=== PATIENT | male | born 1945 | race Caucasian/White ===

== ENCOUNTER 2018-02-08 16:02 | Emergency (ER) | payer MEDICARE, BC ==
[~2018-02-08] VITALS: Ht 162.6 cm; Wt 81.7 kg
[~2018-02-08 16:02] MED LIST: ALLO300 PO; Aspir 8181 MG PO; CLOP75 PO; ESOM20; Inderal80 MG; LOVA40 PO; Nexium40 MG PO; PANT40; PAROEX473 ML; POLY500; POLY500 PO; PRIM50; PROP10 PO; Prinivil10 MG PO; TRAM50 PO; TRIHYD253A PO; Viagra100 MG
== END 2018-02-08 20:18 | disposition home or self-care (01) ==
LOC: ER 16:02
DX: S82.831A Other fracture of upper and lower end of right fibula, initial encounter for closed fracture (principal); F17.200 Nicotine dependence, unspecified, uncomplicated; Z88.8 Allergy status to other drugs, medicaments and biological substances; Z79.899 Other long term (current) drug therapy; X58.XXXA Exposure to other specified factors, initial encounter
CPT/HCPCS: 73610; 99283

== ENCOUNTER → 2018-11-11 | Outpatient (CLI) | payer MEDICARE, BC | END | disposition home or self-care (01) | LOC: LAB EV 11:00 | DX: R19.7 Diarrhea, unspecified (principal) | CPT/HCPCS: 87015; 87045; 87046; 87205; 87493; 87899 ==

== ENCOUNTER → 2019-03-08 | Outpatient (CLI) | payer MEDICARE, BC | END | disposition home or self-care (01) | LOC: LAB EV 13:27 → LAB FUT 03-07 11:25 | DX: K52.9 Noninfective gastroenteritis and colitis, unspecified (principal) | CPT/HCPCS: 87015; 87045; 87046; 87205; 87899 ==

== ENCOUNTER → 2019-03-15 | Outpatient (CLI) | payer MEDICARE, BC ==
[2019-03-19 02:08] LABS: CHLAMYDIA TRACHOMATIS, NAA Negative (Negative); NEISSERIA GONORRHOEAE, NAA Negative (Negative)
== END ==
LOC: LAB 13:30 → LAB SHORT 13:30
PROVIDERS: Registered Nurse Community Health
DX: Z11.3 Encounter for screening for infections with a predominantly sexual mode of transmission (principal); Z20.2 Contact with and (suspected) exposure to infections with a predominantly sexual mode of transmission
CPT/HCPCS: 87491; 87591

== ENCOUNTER 2019-10-31 12:57 | Day surgery (SDC) | payer MEDICARE, BC ==
[~2019-10-31] VITALS: Ht 162.6 cm; Wt 80.6 kg
== END 2019-10-31 15:25 | disposition home or self-care (01) ==
LOC: ORSCSDS 12:57
PROVIDERS: Internal Medicine Gastroenterology
PROC: 0DB58ZX Excision of Esophagus, Via Natural or Artificial Opening Endoscopic, Diagnostic (ICD-10-PCS; principal; 2019-10-31 14:30)
PROC: 0DB68ZX Excision of Stomach, Via Natural or Artificial Opening Endoscopic, Diagnostic (ICD-10-PCS; principal; 2019-10-31 14:30)
DX: K22.70 Barrett's esophagus without dysplasia (principal); K44.9 Diaphragmatic hernia without obstruction or gangrene; K29.60 Other gastritis without bleeding; Z87.820 Personal history of traumatic brain injury; Z87.891 Personal history of nicotine dependence; Z79.01 Long term (current) use of anticoagulants; Z79.899 Other long term (current) drug therapy
CPT/HCPCS: 82947; 87081; 88305; J2704; J7120

== ENCOUNTER 2019-11-28 13:14 | Emergency (ER) | payer MEDICARE, BC ==
[~2019-11-28] VITALS: Ht 162.6 cm; Wt 81.7 kg
[2019-11-28 13:43] LABS: BASOPHILS ABSOLUTE AUTO 0.07 K/mm3 (0.00-0.23); BASOPHILS PERCENT AUTO 1 % (0-2); EOSINOPHILS ABSOLUTE AUTO 0.13 K/mm3 (0.00-0.68); EOSINOPHILS PERCENT AUTO 2 % (0-6); Hematocrit 44.3 % (37.0-53.0); IMMATURE GRAN ABSOLUTE AUTO 0.05 K/mm3 (0.00-0.10); IMMATURE GRAN PERCENT AUTO 1 % (0-1); LYMPHOCYTES ABSOLUTE AUTO 1.99 K/mm3 (0.84-5.20); LYMPHOCYTES PERCENT AUTO 23 % (21-46); MONOCYTES ABSOLUTE AUTO 1.34 K/mm3 (0.16-1.47); MONOCYTES PERCENT AUTO 16 % (4-13); Mean Corpuscular HGB 32.8 pg (26.0-34.0); Mean Corpuscular HGB Conc 33.9 g/dL (31.5-36.5); Mean Corpuscular Volume 97 fL (80-100); Mean Platelet Volume 9.4 fL (9.1-12.4); NEUTROPHILS ABSOLUTE AUTO 4.98 K/mm3 (1.96-9.15); NEUTROPHILS PERCENT AUTO 58 % (41-73); Platelet Count 315 K/mm3 (150-400); RDW Coefficient Variation 12.5 % (11.7-14.2); RDW Standard Deviation 44.9 fL (35.1-46.3); Red Blood Cell Count 4.57 M/mm3 (4.30-5.90); White Blood Cell Count 8.56 K/mm3 (4.00-11.30)
[2019-11-28 14:04] LABS: Alanine Aminotransfer (ALT/SGP 28 U/L (12-78); Albumin, Blood 3.7 g/dL (3.4-5.0); Albumin/Globulin Ratio 1.1 (0.8-1.8); Alk Phos 75 U/L (50-136); Anion Gap 6 mmol/L (6-16); Aspartate Aminotrans (AST/SGOT 19 U/L (12-37); Bilirubin, Total 0.4 mg/dL (0.1-1.0); Blood Urea Nitrogen 10 mg/dL (8-24); Bun/Creatinine Ratio 14.2 (12.0-20.0); CO2, Blood 30 mmol/L (21-32); Calcium, Blood 9.5 mg/dL (8.5-10.1); Chloride, Blood 94 mmol/L (98-108); Globulin, Blood 3.4 g/dL (2.2-4.0); Glomerular Filtration Rate >60 (60-); Glucose, Blood 69 mg/dL (70-99); Sodium, Blood 130 mmol/L (136-145); Total Protein, Blood 7.1 g/dL (6.4-8.2); Troponin I <0.015 ng/mL (0.000-0.040)
[2019-11-28] MEDS ORDERED: Nexium40 MG PO (15:01)
[2019-11-28] MEDS ORDERED: ASPI81CH PO (15:01)
[2019-11-28] MEDS ORDERED: TRIA50 PO (15:02)
[2019-11-28] MEDS ORDERED: Primidone50 MG PO (15:02)
== END 2019-11-28 16:30 | disposition home or self-care (01) ==
LOC: ER 13:14
PROVIDERS: Emergency Medicine
DX: R07.9 Chest pain, unspecified (principal); I10 Essential (primary) hypertension; Z86.73 Personal history of transient ischemic attack (TIA), and cerebral infarction without residual deficits; Z87.891 Personal history of nicotine dependence
CPT/HCPCS: 71045; 80053; 83880; 84484; 85025; 93005; 93010; 99285-25

== ENCOUNTER → 2019-12-22 | Outpatient (CLI) | payer MEDICARE, BC ==
[~2019-12-22] MED LIST changes: +ASPI81CH PO; +Primidone50 MG PO; +TRIA50 PO
[2019-12-23 14:57] LABS: Stool Occult Bld Immuno 1 Negative (NEGATIVE); Stool Occult Bld Immuno 2 Negative (NEGATIVE)
== END | disposition home or self-care (01) ==
LOC: LAB 10:00 → LAB SHORT 10:00 → LAB FUT 12-19 19:00
PROVIDERS: Internal Medicine Gastroenterology
DX: Z79.01 Long term (current) use of anticoagulants (principal); Z51.81 Encounter for therapeutic drug level monitoring; K57.30 Diverticulosis of large intestine without perforation or abscess without bleeding; K92.1 Melena
CPT/HCPCS: 82274

== ENCOUNTER 2020-04-18 16:06 | Inpatient (IN) | payer MEDICARE, BC ==
[~2020-04-18] VITALS: Ht 162.6 cm; Wt 83.2 kg
[~2020-04-18 16:06] MED LIST changes: +ALLO100 PO; -ALLO300 PO; +DYAZIDE 37.5-21 EACH PO; -TRIA50 PO
[2020-04-18] MEDS ORDERED: PANT40 PO (16:23)
[2020-04-18] MEDS ORDERED: POTCHL20ER PO (16:24)
[2020-04-18] MEDS ORDERED: Ipratropium Bro15 ML (16:24)
[2020-04-18 17:20] LABS: BASOPHILS ABSOLUTE AUTO 0.04 K/mm3 (0.00-0.23); BASOPHILS PERCENT AUTO 0 % (0-2); EOSINOPHILS ABSOLUTE AUTO 0.11 K/mm3 (0.00-0.68); EOSINOPHILS PERCENT AUTO 1 % (0-6); IMMATURE GRAN ABSOLUTE AUTO 0.08 K/mm3 (0.00-0.10); IMMATURE GRAN PERCENT AUTO 1 % (0-1); LYMPHOCYTES ABSOLUTE AUTO 1.89 K/mm3 (0.84-5.20); LYMPHOCYTES PERCENT AUTO 14 % (21-46); MONOCYTES ABSOLUTE AUTO 2.34 K/mm3 (0.16-1.47); MONOCYTES PERCENT AUTO 18 % (4-13); Mean Corpuscular HGB 32.5 pg (26.0-34.0); Mean Corpuscular HGB Conc 35.1 g/dL (31.5-36.5); Mean Corpuscular Volume 93 fL (80-100); Mean Platelet Volume 9.6 fL (9.1-12.4); NEUTROPHILS ABSOLUTE AUTO 8.91 K/mm3 (1.96-9.15); NEUTROPHILS PERCENT AUTO 67 % (41-73); Platelet Count 234 K/mm3 (150-400); RDW Coefficient Variation 11.7 % (11.7-14.2); RDW Standard Deviation 39.6 fL (35.1-46.3); White Blood Cell Count 13.37 K/mm3 (4.00-11.30)
[2020-04-18 17:39] LABS: Source, Urine Voided
[2020-04-18 17:46] LABS: Alanine Aminotransfer (ALT/SGP 25 U/L (12-78); Albumin, Blood 3.2 g/dL (3.4-5.0); Albumin/Globulin Ratio 1.1 (0.8-1.8); Alk Phos 65 U/L (50-136); Anion Gap 9 mmol/L (6-16); Aspartate Aminotrans (AST/SGOT 71 U/L (12-37); Bilirubin, Total 0.6 mg/dL (0.1-1.0); Blood Urea Nitrogen 9 mg/dL (8-24); Bun/Creatinine Ratio 13.7 (12.0-20.0); CO2, Blood 28 mmol/L (21-32); Calcium, Blood 8.7 mg/dL (8.5-10.1); Chloride, Blood 86 mmol/L (98-108); Creatinine, Blood 0.66 mg/dL (0.60-1.20); Ethanol (Alcohol), Blood, Med <3 mg/dL; Globulin, Blood 2.9 g/dL (2.2-4.0); Glomerular Filtration Rate >60 (60-); Glucose, Blood 90 mg/dL (70-99); Magnesium, Blood 1.8 mg/dL (1.6-2.4); Potassium, Blood 3.1 mmol/L (3.5-5.5); Sodium, Blood 123 mmol/L (136-145); Total Protein, Blood 6.1 g/dL (6.4-8.2); Troponin I 0.025 ng/mL (0.000-0.040)
[2020-04-18 17:50] LABS: Bilirubin, Urine Neg (Neg); Blood, Urine 4+ (Neg); Glucose Qualitative, Urine 1+ (Neg); Ketones, Urine 1+ (Neg); Leukocyte Esterase, Urine Neg (Neg); Nitrite, Urine Neg (Neg); Protein, Urine 3+ (Neg); Urobilinogen, Urine NORM (Normal)
[2020-04-18 17:52] LABS: Creatine Kinase MB 17.1 ng/mL (0.0-3.6)
[2020-04-18 17:55] LABS: CPK Creatine Kinase 2163 U/L (39-308); Creatine Kinase MB Index 0.8 (0.0-4.0)
[2020-04-18 17:57] LABS: Appearance, Urine Clear (Clear); Color, Urine Yellow (P-Yellow)
[2020-04-18 18:00] LABS: Bacteria Few /hpf; Squamous Epithelial Cells Few /hpf (Few); White Blood Cells, Urine 0-2 /hpf (0-5)
[2020-04-18 18:05] LABS: U Amphetamine Screen Not Detected; U Barbituate Screen Not Detected; U Benzodiazapine Screen Not Detected; U Buprenorphine Screen Not Detected; U Cannabinoids Screen Not Detected; U Cocaine Screen Not Detected; U Methadone Screen Not Detected; U Methamphetamine Screen Not Detected; U Opiates Screen Not Detected; U Oxycodone Screen Not Detected; U Phencyclidine Screen Not Detected; U Propoxyphene Screen Not Detected
[2020-04-18] MEDS ORDERED: ESCI10 PO (19:13)
[2020-04-18] MEDS ORDERED: Fiber Therapy0.52 GM PO (19:57)
[2020-04-18] MEDS ORDERED: Vitamin D2000 UNIT PO (19:57)
[2020-04-19 05:31] LABS: BASOPHILS ABSOLUTE AUTO 0.04 K/mm3 (0.00-0.23); BASOPHILS PERCENT AUTO 0 % (0-2); EOSINOPHILS ABSOLUTE AUTO 0.13 K/mm3 (0.00-0.68); EOSINOPHILS PERCENT AUTO 1 % (0-6); Hematocrit 34.1 % (37.0-53.0); Hemoglobin 11.9 g/dL (13.5-17.5); IMMATURE GRAN ABSOLUTE AUTO 0.05 K/mm3 (0.00-0.10); IMMATURE GRAN PERCENT AUTO 0 % (0-1); LYMPHOCYTES ABSOLUTE AUTO 1.88 K/mm3 (0.84-5.20); LYMPHOCYTES PERCENT AUTO 16 % (21-46); MONOCYTES ABSOLUTE AUTO 1.82 K/mm3 (0.16-1.47); MONOCYTES PERCENT AUTO 15 % (4-13); Mean Corpuscular HGB 32.5 pg (26.0-34.0); Mean Corpuscular HGB Conc 34.9 g/dL (31.5-36.5); Mean Corpuscular Volume 93 fL (80-100); Mean Platelet Volume 9.9 fL (9.1-12.4); NEUTROPHILS ABSOLUTE AUTO 8.15 K/mm3 (1.96-9.15); NEUTROPHILS PERCENT AUTO 68 % (41-73); Platelet Count 229 K/mm3 (150-400); RDW Coefficient Variation 11.8 % (11.7-14.2); RDW Standard Deviation 40.5 fL (35.1-46.3); Red Blood Cell Count 3.66 M/mm3 (4.30-5.90); White Blood Cell Count 12.07 K/mm3 (4.00-11.30)
--- NOTE | 2020-04-19 05:51 | NUR ---
SHIFT SUMMARY PT NEW ED ADMIT THIS EVENING. PT WAS HAVING MULTIPLE FALLS AT HOME. DOWN FOR APPROX 1 HR EACH TIME. A COUPLE SCATTERED BRUISES THROUGHOUT. SKIN TEAR TO LFA. NEW MEPILEX APPLIED. PT WAS ABLE TO STAND AND TAKE SMALL STEPS TO TRANSFER FROM GURNEY TO BED AND FROM BED TO BSC. PT FEELING VERY WEAK AND TIRED BUT TOLERATED TRANSFERS WELL. K AND MAG RIDER INFUSED THIS EVENING. LR RUNNING AT 125 ML/HR. NAM PLACED IN ED FOR RETENTION. URINE APPEARS TO HAVE SOME BLOOD IN IT. LESSENING THROUGHOUT THE NIGHT. PT IS ON PLAVIX AT HOME. NO COMPLAINTS OF PAIN. VITAL SIGNS STABLE. OTHERWISE PT HAD UNEVENTFUL NIGHT. WILL CONTINUE TO MONITOR AND REPORT TO DAY RN.
[2020-04-19 05:58] LABS: Alanine Aminotransfer (ALT/SGP 22 U/L (12-78); Albumin, Blood 2.8 g/dL (3.4-5.0); Alk Phos 55 U/L (50-136); Anion Gap 9 mmol/L (6-16); Aspartate Aminotrans (AST/SGOT 63 U/L (12-37); Bilirubin, Total 0.6 mg/dL (0.1-1.0); Blood Urea Nitrogen 7 mg/dL (8-24); Bun/Creatinine Ratio 12.7 (12.0-20.0); CO2, Blood 26 mmol/L (21-32); Calcium, Blood 7.9 mg/dL (8.5-10.1); Chloride, Blood 87 mmol/L (98-108); Creatinine, Blood 0.55 mg/dL (0.60-1.20); Globulin, Blood 2.8 g/dL (2.2-4.0); Glomerular Filtration Rate >60 (60-); Glucose, Blood 98 mg/dL (70-99); Potassium, Blood 3.2 mmol/L (3.5-5.5); Sodium, Blood 122 mmol/L (136-145); Total Protein, Blood 5.6 g/dL (6.4-8.2); Troponin I <0.015 ng/mL (0.000-0.040)
[2020-04-19 06:06] LABS: CPK Creatine Kinase 1346 U/L (39-308)
[2020-04-19 15:02] LABS: Anion Gap 8 mmol/L (6-16); Blood Urea Nitrogen 8 mg/dL (8-24); Bun/Creatinine Ratio 15.3 (12.0-20.0); CO2, Blood 25 mmol/L (21-32); Calcium, Blood 8.1 mg/dL (8.5-10.1); Chloride, Blood 88 mmol/L (98-108); Creatinine, Blood 0.52 mg/dL (0.60-1.20); Glomerular Filtration Rate >60 (60-); Glucose, Blood 119 mg/dL (70-99); Potassium, Blood 3.6 mmol/L (3.5-5.5); Sodium, Blood 121 mmol/L (136-145)
--- NOTE | 2020-04-19 17:12 | NUR ---
Shift Summary A/Ox3, calls for needs appropriately. 1P c FWW to bedside commode. Pleasant and cooperative with care, very conversational. Denies pain, nausea, vomiting. Had an uneventful day. Clark removed. Hyponatremia continues, strict I/O with free fluid restrictions in place of 1000 mL/day. Tolerating PO well, good appetite. No other acute concerns. Dr. Pruett aware of hyponatremia. Will continue to monitor.
[2020-04-19 21:07] LABS: CHLAMYDIA TRACHOMATIS, NAA Negative (Negative); NEISSERIA GONORRHOEAE, NAA Negative (Negative)
[2020-04-20 05:22] LABS: BASOPHILS ABSOLUTE AUTO 0.03 K/mm3 (0.00-0.23); BASOPHILS PERCENT AUTO 0 % (0-2); EOSINOPHILS ABSOLUTE AUTO 0.12 K/mm3 (0.00-0.68); EOSINOPHILS PERCENT AUTO 1 % (0-6); Hematocrit 34.8 % (37.0-53.0); Hemoglobin 12.1 g/dL (13.5-17.5); IMMATURE GRAN ABSOLUTE AUTO 0.05 K/mm3 (0.00-0.10); IMMATURE GRAN PERCENT AUTO 1 % (0-1); LYMPHOCYTES ABSOLUTE AUTO 1.78 K/mm3 (0.84-5.20); LYMPHOCYTES PERCENT AUTO 17 % (21-46); MONOCYTES ABSOLUTE AUTO 1.82 K/mm3 (0.16-1.47); MONOCYTES PERCENT AUTO 17 % (4-13); Mean Corpuscular HGB 32.7 pg (26.0-34.0); Mean Corpuscular HGB Conc 34.8 g/dL (31.5-36.5); Mean Corpuscular Volume 94 fL (80-100); Mean Platelet Volume 9.8 fL (9.1-12.4); NEUTROPHILS ABSOLUTE AUTO 6.79 K/mm3 (1.96-9.15); NEUTROPHILS PERCENT AUTO 64 % (41-73); Platelet Count 217 K/mm3 (150-400); RDW Coefficient Variation 11.9 % (11.7-14.2); White Blood Cell Count 10.59 K/mm3 (4.00-11.30)
[2020-04-20 05:48] LABS: Albumin, Blood 2.9 g/dL (3.4-5.0); Anion Gap 8 mmol/L (6-16); Blood Urea Nitrogen 7 mg/dL (8-24); Bun/Creatinine Ratio 14.2 (12.0-20.0); CO2, Blood 25 mmol/L (21-32); Calcium, Blood 7.9 mg/dL (8.5-10.1); Chloride, Blood 91 mmol/L (98-108); Creatinine, Blood 0.49 mg/dL (0.60-1.20); Glomerular Filtration Rate >60 (60-); Glucose, Blood 109 mg/dL (70-99); Magnesium, Blood 1.7 mg/dL (1.6-2.4); Phosphorus, Blood 2.2 mg/dL (2.5-4.9); Potassium, Blood 3.4 mmol/L (3.5-5.5); Sodium, Blood 124 mmol/L (136-145)
--- NOTE | 2020-04-20 07:17 | NUR ---
SHIFT SUMMARY: VSS. AFEB. AAOX3. MAKES NEEDS KNOWN. NA+ 124 THIS AM. PT COMPLIANT W/FLUID RESTRICTION. CONTINENT W/VOIDS. IV FLUIDS INFUSING ORDERED. PIVOT T/F TO BSC W/ 1 ASSIST AND WALKER. A LITTLE UNSTEADY. SLEPT INTERMITTENTLY. NASAL CONGESTION AUDIBLE THIS AM, PT STATES THIS IS BASELINE FOR HIM. NO ACUTE CHANGES TONIGHT. WILL CONT TO MONITOR.
[2020-04-20 10:09] LABS: Creatine Kinase MB 7.4 ng/mL (0.0-3.6); Creatine Kinase MB Index 0.6 (0.0-4.0)
--- NOTE | 2020-04-20 17:47 | NUR ---
SHIFT SUMMARY- PT IS A/O, PLESANT AND COOPERATIVE. HE IS RECIEVING IV K. HE HAD A SHOWER TODAY. WORKED WITH PT/OT. HE TOLERATED IT WELL. HE IS EATING AND DRINKING WELL.
[2020-04-21 05:29] LABS: Anion Gap 10 mmol/L (6-16); Blood Urea Nitrogen 8 mg/dL (8-24); Bun/Creatinine Ratio 16.2 (12.0-20.0); CO2, Blood 25 mmol/L (21-32); Calcium, Blood 8.1 mg/dL (8.5-10.1); Chloride, Blood 92 mmol/L (98-108); Glomerular Filtration Rate >60 (60-); Glucose, Blood 107 mg/dL (70-99); Phosphorus, Blood 2.5 mg/dL (2.5-4.9); Potassium, Blood 3.8 mmol/L (3.5-5.5); Sodium, Blood 127 mmol/L (136-145)
--- NOTE | 2020-04-21 07:08 | NUR ---
SUMMARY PT HAD NO ISSUES NOTED. PT HAS SLEPT T/O SHIFT. PT IS USING FWW TO AMBULATE WELL. PT CURRENTLY SLEEPING IN CHAIR AND BREATHING EASY. CALL LIGHT IN REACH AND CHAIR ALARM ON.
--- NOTE | 2020-04-21 15:59 | NUR ---
SHIFT SUMMARY PT IS A/O X 4 WITH NO C/O PAIN. HE IS [place] AND THAT CAN SOMETIMES BE A BARRIER TO COMMUNICATION. HE IS A STAND BY ASSIST WITH FWW AND GAIT BELT. HE WORKED WITH THERAPY TODAY AND IS DOING WELL. THE PLAN IS FOR HIM TO DC TO SNF. IV FLUIDS INFUSING ORDERED WITH NO ISSUE. PT HAS A GOOD APPETITE AND HAS BEEN AMBULATING TO THE TOILET FOR VOIDING. HE IS ABLE TO MAKE HIS NEEDS KNOWN AND CALLS FOR HELP WHEN NEEDED.
--- NOTE | 2020-04-22 03:05 | NUR ---
ASSUMED CARE OF PATIENT @ [id number] FROM JOELLE MILLER.
--- NOTE | 2020-04-22 03:23 | NUR ---
REPORT GIVEN TO Lolis VANESSA RN
[2020-04-22 05:46] LABS: Albumin, Blood 2.9 g/dL (3.4-5.0); Anion Gap 8 mmol/L (6-16); Blood Urea Nitrogen 10 mg/dL (8-24); Bun/Creatinine Ratio 17.8 (12.0-20.0); CO2, Blood 25 mmol/L (21-32); CPK Creatine Kinase 583 U/L (39-308); Calcium, Blood 8.4 mg/dL (8.5-10.1); Chloride, Blood 97 mmol/L (98-108); Creatinine, Blood 0.56 mg/dL (0.60-1.20); Glomerular Filtration Rate >60 (60-); Glucose, Blood 104 mg/dL (70-99); Sodium, Blood 130 mmol/L (136-145)
[2020-04-22 06:03] LABS: Creatine Kinase MB 4.3 ng/mL (0.0-3.6); Creatine Kinase MB Index 0.7 (0.0-4.0)
--- NOTE | 2020-04-22 06:35 | NUR ---
Pt rested peacefully during the night and was assisted to the bathroom three times to void. pt reported no pain or new symptoms during the shift. pt is sleeping in bed with the bed alarm on and the vanessa light within reach.
--- NOTE | 2020-04-22 17:40 | NUR ---
PT AOX3 AND COOPERATIVE OF CARE. PT HAS BEEN DOING WELL TODAY. PT IS A ONE PERSON WITH WALKER TO RESTROOM. PT CAN SLEEP VERY HEAVY AND BE HARD TO WAKE UP, BUT ONCE AWAKE IF VERY ALERT. PT HAS BEEN UP MANY TIMES TODAY TO AMBULATE TO RESTROOM AND PT HAS DONE WELL. PT UP FOR ALL MEALS AND HAS BEEN UP IN HIS CHAIR A LOT TODAY. CALL LIGHT WITHIN REACH WILL CONTINUE TO MONITOR.
--- NOTE | 2020-04-23 04:29 | NUR ---
SUMMARY PT HAD NO ISSUES NOTED. PT WANTED TO WALK SOME BEFORE [id number] A MOVIE. PT WAS WALKED W/ FWW UP AND DOWN BLAKE. PT WAS UP LATE WATCHING TV IN CHAIR. PT VOIDED MULTIPLE TIMES W/ OUT ISSUE. PT SCROTAL SWELLING REMAINS. PT HAS BEEN BEEN SLEEPING WELL SINCE GOING TO BED. PT CURRENTLY SLEEPING AND IN NO DISTRESS. CALL LIGHT IN REACH BED ALARM ON.
[2020-04-23 05:37] LABS: BASOPHILS ABSOLUTE AUTO 0.07 K/mm3 (0.00-0.23); BASOPHILS PERCENT AUTO 1 % (0-2); EOSINOPHILS ABSOLUTE AUTO 0.26 K/mm3 (0.00-0.68); EOSINOPHILS PERCENT AUTO 3 % (0-6); IMMATURE GRAN ABSOLUTE AUTO 0.04 K/mm3 (0.00-0.10); IMMATURE GRAN PERCENT AUTO 0 % (0-1); LYMPHOCYTES ABSOLUTE AUTO 1.29 K/mm3 (0.84-5.20); LYMPHOCYTES PERCENT AUTO 14 % (21-46); MONOCYTES ABSOLUTE AUTO 1.95 K/mm3 (0.16-1.47); MONOCYTES PERCENT AUTO 20 % (4-13); Mean Corpuscular HGB 32.5 pg (26.0-34.0); Mean Corpuscular HGB Conc 34.3 g/dL (31.5-36.5); Mean Corpuscular Volume 95 fL (80-100); Mean Platelet Volume 9.8 fL (9.1-12.4); NEUTROPHILS ABSOLUTE AUTO 5.94 K/mm3 (1.96-9.15); NEUTROPHILS PERCENT AUTO 62 % (41-73); Platelet Count 260 K/mm3 (150-400); RDW Coefficient Variation 12.1 % (11.7-14.2); RDW Standard Deviation 42.8 fL (35.1-46.3); Red Blood Cell Count 3.69 M/mm3 (4.30-5.90); White Blood Cell Count 9.55 K/mm3 (4.00-11.30)
[2020-04-23 05:40] LABS: Albumin, Blood 2.8 g/dL (3.4-5.0); Anion Gap 8 mmol/L (6-16); Blood Urea Nitrogen 10 mg/dL (8-24); Bun/Creatinine Ratio 19.5 (12.0-20.0); CO2, Blood 27 mmol/L (21-32); Calcium, Blood 8.5 mg/dL (8.5-10.1); Chloride, Blood 97 mmol/L (98-108); Creatinine, Blood 0.51 mg/dL (0.60-1.20); Glomerular Filtration Rate >60 (60-); Glucose, Blood 102 mg/dL (70-99); Magnesium, Blood 1.7 mg/dL (1.6-2.4); Phosphorus, Blood 3.4 mg/dL (2.5-4.9); Potassium, Blood 3.8 mmol/L (3.5-5.5); Sodium, Blood 132 mmol/L (136-145)
--- NOTE | 2020-04-23 15:51 | NUR ---
SHIFT SUMMARY PT IS A/O X 4 AND IS VERY [place] WITH CAN BE A BARRIER TO COMMUNICATION. HE HAS NO COMPLAINTS. PT WORKED WITH THERAPIES TODAY AND IS IMPROVING. DR KHALIL ORDERED AN MRI WHICH WAS JUST COMPLETED AND THE PT IS NOW BACK IN HIS ROOM. HE AMBULATES TO THE TOILET WITH THE FWW AND STAND BY ASSIST. PT IS ABLE TO MAKE HIS NEEDS KNOWN AND CALLS FOR HELP WHEN NEEDED.
--- NOTE | 2020-04-24 07:22 | NUR ---
74 year old MAle admitted 04/18 with fall & rhabdo continued most of shift on IVF with kt. He has basline tremors needs assist to get up oob multiple times to ambulate to bathroom. PT has 2 pluse bilat edema some wheezing but room air. On fluid restriction aware of limits. Vladislav perez with PT OT hoping to dc to SNF soon.
--- NOTE | 2020-04-24 11:19 | NUR ---
Pt sitting in recliner chair upon arrival. Pt denies pain and dyspnea at this time. Pt reports improved strength. Listened as Pt discussed ambulating with Pt taking a full lap around medical floor. Pt reports receiving assistance with caregivers 3 days a week. Educated Pt on the importance of having [facility] re-evaluate needs and assistance requirements in order to increase caregiver support. Provided simple and gentle education regarding the importance of routine conversations with PCP and developing multiple plans. Pt expresses appreciation of visit and reports no other concerns. Palliative Care will remain available.
--- NOTE | 2020-04-24 15:28 | NUR ---
SHIFT SUMMARY PT REMAINS A/O X 4 AND [place]. HE HAS NO C/O PAIN. HE CONTINUES TO IMPROVE AND WORK WITH THERPAY. HE AMBULATES WITH A FWW TO THE TOILET. DR KHALIL MET WITH THE PT THIS MORNING AND PLANS TO DC THE PT HOME TOMORROW WITH HOME HEALTH. PT IS ABLE TO MAKE HIS NEEDS KNOWN AND CALLS FOR HELP WHEN NEEDED.
--- NOTE | 2020-04-25 06:15 | NUR ---
PT with fall & rhabdo continues to request assistance appropriately to go to bathroom or ambulate on unit. Has some difficulty rising from chair to standing but has slow & steady gait unce up & moving. PT declined SNF says he want to return home with caregivers from [facility]. PT is [place] & [facility] assists with providing services. On room air , voids , toleratieng diet & activity. PT says his ex Step DTR is supportive & she will be picking him up for discharge today. Denies acute pain . Compliant with 1000 ml fluid restriction . Continues with frail thin skin with third spacing evident from fluids given for rhabdo.
[2020-04-25] MEDS ORDERED: ACET325 PO (15:21)
--- NOTE | 2020-04-25 16:06 | NUR ---
PATIENT DISCHARGE: PATIENT DISCHARGED TO HOME / XFR TO HOME HEALTH THIS SHIFT. MEDICATION RECONCILIATION COMPLETED; [facility] [place] DISCHARGE EDUCATION COMPLETED WITH PATIENT. PATIENT TRANSPORTED TO EXIT BY [facility] WITH WHEELCHAIR AT 1602. PATIENT DEPARTED [facility] VIA PRIVATE AUTO.
== END 2020-04-25 16:10 | disposition home health service (06) | DRG 565 ==
LOC: ER 16:06 → MEDS 20:25
PROVIDERS: Emergency Medicine; Internal Medicine Gastroenterology; Nurse Practitioner Acute Care; ADMIT Internal Medicine
DX: T79.6XXA Traumatic ischemia of muscle, initial encounter (principal); E87.1 Hypo-osmolality and hyponatremia; I65.22 Occlusion and stenosis of left carotid artery; W19.XXXA Unspecified fall, initial encounter; E83.39 Other disorders of phosphorus metabolism; E78.5 Hyperlipidemia, unspecified; I10 Essential (primary) hypertension; R53.81 Other malaise; K21.9 Gastro-esophageal reflux disease without esophagitis; F32.9 Major depressive disorder, single episode, unspecified; M10.9 Gout, unspecified; E87.6 Hypokalemia
CPT/HCPCS: 36415; 51702; 51798; 70450; 70544; 70551; 71045; 80048; 80053; 80069; 81001; 82550; 82553; 83735; 84443; 84484; 85025; 87491; 87591; 93005; 93010; 93880; 96361-59; 96365-59; 97110; 97112; 97116; 97162; 97166; 97530; 97535; 99285-25; A9270; A9270-GY; G0480; J1650; J1940; J3475; J3480; J7030; J7120

== ENCOUNTER → 2022-02-16 | Outpatient (CLI) | payer MEDICARE, BC ==
[~2022-02-16] MED LIST changes: +ACET325 PO; +ESCI10 PO; +Fiber Therapy0.52 GM PO; +Ipratropium Bro15 ML; +PANT40 PO; +POTCHL20ER PO; +Vitamin D2000 UNIT PO
[2022-02-17 20:24] LABS: Adenovirus F 40/41 Not Detected (NOT DETECT); Astrovirus Not Detected (NOT DETECT); Campylobacter Sp Not Detected (NOT DETECT); Cryptosporidium Not Detected (NOT DETECT); Cyclospora Cayetanensis Not Detected (NOT DETECT); E. Coli O157 Not Detected (NOT DETECT); Entamoeba Histolytica Not Detected (NOT DETECT); Enteroaggregative E. coli-EAEC Not Detected (NOT DETECT); Enteropathogenic E. coli-EPEC Not Detected (NOT DETECT); Enterotoxigenic E. coli-ETEC Not Detected (NOT DETECT); Giardia Lamblia Not Detected (NOT DETECT); Norovirus GI/GII Not Detected (NOT DETECT); Plesiomonas Shigelloides Not Detected (NOT DETECT); Rotavirus A Not Detected (NOT DETECT); Salmonella Sp Not Detected (NOT DETECT); Sapovirus Not Detected (NOT DETECT); Shiga Toxin-prod E. coli-STEC Not Detected (NOT DETECT); Shigella/Enteroin E. coli-EIEC Not Detected (NOT DETECT); Vibrio Cholerae Not Detected (NOT DETECT); Vibrio Sp Not Detected (NOT DETECT); Yersinia Enterocolitica Not Detected (NOT DETECT)
[2022-02-19 11:11] LABS: FATS, NEUTRAL Normal (.); FATS, TOTAL Normal (.)
== END | disposition home or self-care (01) ==
LOC: LAB 14:00 → LAB SHORT 14:00
PROVIDERS: Internal Medicine Gastroenterology
DX: R19.7 Diarrhea, unspecified (principal)
CPT/HCPCS: 0097U

== ENCOUNTER → 2022-02-27 | Outpatient (CLI) | payer BC ==
[2022-02-27 19:48] LABS: Campylobacter Sp Not Detected (NOT DETECT)
[2022-02-27 19:49] LABS: Adenovirus F 40/41 Not Detected (NOT DETECT); Astrovirus Not Detected (NOT DETECT); Cryptosporidium Not Detected (NOT DETECT); Cyclospora Cayetanensis Not Detected (NOT DETECT); E. Coli O157 Not Detected (NOT DETECT); Entamoeba Histolytica Not Detected (NOT DETECT); Enteroaggregative E. coli-EAEC Not Detected (NOT DETECT); Enteropathogenic E. coli-EPEC Not Detected (NOT DETECT); Enterotoxigenic E. coli-ETEC Not Detected (NOT DETECT); Giardia Lamblia Not Detected (NOT DETECT); Norovirus GI/GII Not Detected (NOT DETECT); Plesiomonas Shigelloides Not Detected (NOT DETECT); Rotavirus A Not Detected (NOT DETECT); Salmonella Sp Not Detected (NOT DETECT); Sapovirus Not Detected (NOT DETECT); Shiga Toxin-prod E. coli-STEC Not Detected (NOT DETECT); Shigella/Enteroin E. coli-EIEC Not Detected (NOT DETECT); Vibrio Cholerae Not Detected (NOT DETECT); Vibrio Sp Not Detected (NOT DETECT); Yersinia Enterocolitica Not Detected (NOT DETECT)
== END | disposition home or self-care (01) ==
LOC: LAB 14:12 → LAB SHORT 14:12
PROVIDERS: Internal Medicine Gastroenterology
DX: R19.7 Diarrhea, unspecified (principal)
CPT/HCPCS: 87507

== ENCOUNTER → 2023-10-20 | Outpatient (CLI) | payer MEDICARE, BC ==
[~2023-10-20] MED LIST changes: +Cyproheptadine H4 MG PO; +HYDCHL12.5 PO
[2023-10-21 11:47] LABS: Stool Occult Bld Immuno 1 Negative (NEGATIVE)
== END ==
LOC: EDSTATUS 07:21 → LAB 14:26 → LAB SHORT 14:26
PROVIDERS: Internal Medicine Gastroenterology
DX: R19.8 Other specified symptoms and signs involving the digestive system and abdomen (principal); Z86.010 Personal history of colon polyps
CPT/HCPCS: 82274

== ENCOUNTER → 2024-12-08 | Outpatient (CLI) | payer MEDICARE, BC ==
[2024-12-09 11:43] LABS: Stool Occult Bld Immuno 1 Negative (NEGATIVE)
== END | disposition home or self-care (01) ==
LOC: LAB 11:17 → LAB SHORT 11:17
DX: K92.2 Gastrointestinal hemorrhage, unspecified (principal)
CPT/HCPCS: 82274

== ENCOUNTER 2025-05-30 11:32 | Emergency (ER) | payer MEDICARE, BC ==
[~2025-05-30] VITALS: Ht 165.1 cm; Wt 71.7 kg
[2025-05-30 13:02] LABS: BASOPHILS ABSOLUTE AUTO 0.05 K/mm3 (0.00-0.23); BASOPHILS PERCENT AUTO 1 % (0-2); EOSINOPHILS ABSOLUTE AUTO 0.06 K/mm3 (0.00-0.68); EOSINOPHILS PERCENT AUTO 1 % (0-6); Hematocrit 41.4 % (37.0-53.0); Hemoglobin 14.1 g/dL (13.5-17.5); IMMATURE GRAN ABSOLUTE AUTO 0.03 K/mm3 (0.00-0.10); IMMATURE GRAN PERCENT AUTO 0 % (0-1); LYMPHOCYTES ABSOLUTE AUTO 1.71 K/mm3 (0.84-5.20); LYMPHOCYTES PERCENT AUTO 22 % (21-46); MONOCYTES ABSOLUTE AUTO 1.06 K/mm3 (0.16-1.47); MONOCYTES PERCENT AUTO 13 % (4-13); Mean Corpuscular HGB Conc 34.1 g/dL (31.5-36.5); Mean Corpuscular Volume 96 fL (80-100); NEUTROPHILS ABSOLUTE AUTO 5.00 K/mm3 (1.96-9.15); NEUTROPHILS PERCENT AUTO 63 % (41-73); NRBC ABSOLUTE 0.00 K/mm3 (0.00-0.02); NRBC Auto 0.0 /100 WBC (0.0-0.2); Platelet Count 269 K/mm3 (150-400); RDW Coefficient Variation 12.5 % (11.7-14.2); RDW Standard Deviation 44.6 fL (35.1-46.3)
[2025-05-30 13:21] LABS: Alanine Aminotransfer (ALT/SGP 30.0 U/L (12-78); Albumin, Blood 3.8 g/dL (3.4-5.0); Albumin/Globulin Ratio 1.2 (0.8-1.8); Anion Gap 4.0 mmol/L (3-11); Aspartate Aminotrans (AST/SGOT 24.0 U/L (12-37); Bilirubin, Total 0.5 mg/dL (0.1-1.0); Blood Urea Nitrogen 17.0 mg/dL (8-24); CO2, Blood 35.0 mmol/L (21-32); Calcium, Blood 9.4 mg/dL (8.5-10.1); Chloride, Blood 99.0 mmol/L (98-108); Creatinine, Blood 0.99 mg/dL (0.60-1.20); Globulin, Blood 3.3 g/dL (2.2-4.0); Glucose, Blood 125.0 mg/dL (70-99); Potassium, Blood 3.9 mmol/L (3.5-5.5); Sodium, Blood 134.0 mmol/L (136-145); Total Protein, Blood 7.1 g/dL (6.4-8.2)
[2025-05-30] MEDS ORDERED: PLAVIX75 MG PO (14:17)
[2025-05-30] MEDS ORDERED: ECONAZOLE NITRA30 GM (14:17)
[2025-05-30] MEDS ORDERED: IPRATROPIUM BRO15 ML (14:17)
[2025-05-30] MEDS ORDERED: ATOR40TA PO (14:18)
[2025-05-30 15:05] LABS: Source, Urine Clean Catch
[2025-05-30 15:13] LABS: Bilirubin, Urine Neg (Neg); Color, Urine Yellow (P-Yellow); Glucose Qualitative, Urine Neg (Neg); Ketones, Urine Neg (Neg); Leukocyte Esterase, Urine Neg (Neg); Protein, Urine 1+ (Neg); Specific Gravity, Urine 1.010 (1.003-1.022); Urobilinogen, Urine NORM (Normal)
[2025-05-30 15:20] LABS: White Blood Cells, Urine 0-2 /hpf (0-5)
[2025-05-30 16:13] VITALS: BP 141/74
== END 2025-05-30 16:06 | disposition home or self-care (01) ==
LOC: ER 11:32
PROVIDERS: Physician Assistant
DX: K52.9 Noninfective gastroenteritis and colitis, unspecified (principal); R63.4 Abnormal weight loss; K40.90 Unilateral inguinal hernia, without obstruction or gangrene, not specified as recurrent; I10 Essential (primary) hypertension; Z88.8 Allergy status to other drugs, medicaments and biological substances; Z79.899 Other long term (current) drug therapy; Z87.891 Personal history of nicotine dependence
CPT/HCPCS: 71046; 74177; 80053; 81001; 85025; 93005; 93010; 99284-25; Q9967

== ENCOUNTER 2025-06-19 17:22 | Inpatient (IN) | payer MEDICARE, BC ==
[~2025-06-19] VITALS: Ht 165.1 cm; Wt 70.7 kg
[~2025-06-19 17:22] MED LIST changes: +ATOR40TA PO; +ECONAZOLE NITRA30 GM; +IPRATROPIUM BRO15 ML; +PLAVIX75 MG PO
[2025-06-19] MEDS ORDERED: NS 1,000 ML IV SCH (17:50)
[2025-06-19 18:25] LABS: BASOPHILS ABSOLUTE AUTO 0.02 K/mm3 (0.00-0.23); BASOPHILS PERCENT AUTO 0 % (0-2); EOSINOPHILS ABSOLUTE AUTO 0.00 K/mm3 (0.00-0.68); EOSINOPHILS PERCENT AUTO 0 % (0-6); Hematocrit 41.5 % (37.0-53.0); Hemoglobin 14.6 g/dL (13.5-17.5); IMMATURE GRAN ABSOLUTE AUTO 0.09 K/mm3 (0.00-0.10); IMMATURE GRAN PERCENT AUTO 0 % (0-1); LYMPHOCYTES ABSOLUTE AUTO 0.73 K/mm3 (0.84-5.20); LYMPHOCYTES PERCENT AUTO 3 % (21-46); MONOCYTES ABSOLUTE AUTO 3.24 K/mm3 (0.16-1.47); MONOCYTES PERCENT AUTO 15 % (4-13); Mean Corpuscular HGB Conc 35.2 g/dL (31.5-36.5); Mean Corpuscular Volume 93 fL (80-100); NEUTROPHILS ABSOLUTE AUTO 17.35 K/mm3 (1.96-9.15); NEUTROPHILS PERCENT AUTO 81 % (41-73); NRBC ABSOLUTE 0.00 K/mm3 (0.00-0.02); NRBC Auto 0.0 /100 WBC (0.0-0.2); Platelet Count 270 K/mm3 (150-400); RDW Coefficient Variation 12.5 % (11.7-14.2); RDW Standard Deviation 42.5 fL (35.1-46.3)
[2025-06-19 19:52] LABS: Alanine Aminotransfer (ALT/SGP 107 U/L (12-78); Albumin, Blood 3.5 g/dL (3.4-5.0); Albumin/Globulin Ratio 1.1 (0.8-1.8); Anion Gap 14 mmol/L (3-11); Aspartate Aminotrans (AST/SGOT 610 U/L (12-37); Bilirubin, Total 0.9 mg/dL (0.1-1.0); Blood Urea Nitrogen 34 mg/dL (8-24); CO2, Blood 23 mmol/L (21-32); Calcium, Blood 9.5 mg/dL (8.5-10.1); Chloride, Blood 98 mmol/L (98-108); Creatinine, Blood 1.75 mg/dL (0.60-1.20); Globulin, Blood 3.2 g/dL (2.2-4.0); Glucose, Blood 149 mg/dL (70-99); Potassium, Blood 3.5 mmol/L (3.5-5.5); Sodium, Blood 131 mmol/L (136-145); Total Protein, Blood 6.7 g/dL (6.4-8.2)
[2025-06-19] MEDS ORDERED: Ondansetron HCl 2 MG / ML 2ML Vial IV PRN (21:55)
[2025-06-20] VITALS (7 sets, daily range): BP systolic 114–149; BP diastolic 61–91
[2025-06-20] MEDS ORDERED: NS 1,000 ML IV SCH (02:00)
[2025-06-20 04:18] LABS: BASOPHILS ABSOLUTE AUTO 0.03 K/mm3 (0.00-0.23); BASOPHILS PERCENT AUTO 0 % (0-2); EOSINOPHILS ABSOLUTE AUTO 0.00 K/mm3 (0.00-0.68); EOSINOPHILS PERCENT AUTO 0 % (0-6); Hematocrit 37.9 % (37.0-53.0); Hemoglobin 13.2 g/dL (13.5-17.5); IMMATURE GRAN ABSOLUTE AUTO 0.06 K/mm3 (0.00-0.10); IMMATURE GRAN PERCENT AUTO 0 % (0-1); LYMPHOCYTES ABSOLUTE AUTO 1.21 K/mm3 (0.84-5.20); LYMPHOCYTES PERCENT AUTO 6 % (21-46); MONOCYTES ABSOLUTE AUTO 3.01 K/mm3 (0.16-1.47); MONOCYTES PERCENT AUTO 15 % (4-13); Mean Corpuscular HGB Conc 34.8 g/dL (31.5-36.5); Mean Corpuscular Volume 92 fL (80-100); NEUTROPHILS ABSOLUTE AUTO 15.50 K/mm3 (1.96-9.15); NEUTROPHILS PERCENT AUTO 78 % (41-73); NRBC ABSOLUTE 0.00 K/mm3 (0.00-0.02); NRBC Auto 0.0 /100 WBC (0.0-0.2); Platelet Count 243 K/mm3 (150-400); RDW Coefficient Variation 12.6 % (11.7-14.2); RDW Standard Deviation 43.0 fL (35.1-46.3)
[2025-06-20 05:08] LABS: Magnesium, Blood 1.9 mg/dL (1.6-2.4)
--- NOTE | 2025-06-20 06:21 | NUR ---
SHIFT SUMMARY PT HAS TOLERATED SHIFT WELL SINCE ADMIT TO PCU OVERNIGHT. PT CURRENTLY RESTING COMFORTABLY IN ROOM. PT STATES NO COMPLAINTS OF PAIN AT THIS TIME. PT HAS REMAINED WEAK OVERNIGHT. PICTURES IN CHART OF BRUISING AND WOUNDS ON PATIENTS BODY. CALL LIGHT WITHIN REACH. WILL CONTINUE TO MONITOR UNTIL REPORT PASSED TO DAY SHIFT TEAM.
[2025-06-20 07:49] LABS: Alanine Aminotransfer (ALT/SGP 106 U/L (12-78); Albumin, Blood 3.0 g/dL (3.4-5.0); Albumin/Globulin Ratio 1.0 (0.8-1.8); Anion Gap 13 mmol/L (3-11); Aspartate Aminotrans (AST/SGOT 571 U/L (12-37); Bilirubin, Total 0.6 mg/dL (0.1-1.0); Blood Urea Nitrogen 44 mg/dL (8-24); CO2, Blood 22 mmol/L (21-32); Calcium, Blood 8.6 mg/dL (8.5-10.1); Chloride, Blood 102 mmol/L (98-108); Creatinine, Blood 2.06 mg/dL (0.60-1.20); Globulin, Blood 2.9 g/dL (2.2-4.0); Glucose, Blood 117 mg/dL (70-99); Potassium, Blood 3.4 mmol/L (3.5-5.5); Sodium, Blood 134 mmol/L (136-145); Total Protein, Blood 5.9 g/dL (6.4-8.2)
[2025-06-20] MEDS ORDERED: Enoxaparin 30 MG/0.3 ML SYR SC SCH (09:00)
[2025-06-20] MEDS ORDERED: METAMUCIL POWD798 GM PO (09:30)
[2025-06-20 09:48] LABS: Source, Urine Clean Catch
[2025-06-20 09:55] LABS: Bilirubin, Urine Neg (Neg); Color, Urine Brown (P-Yellow); Glucose Qualitative, Urine Neg (Neg); Ketones, Urine 1+ (Neg); Leukocyte Esterase, Urine Neg (Neg); Protein, Urine 3+ (Neg); Specific Gravity, Urine 1.020 (1.003-1.022); Urobilinogen, Urine NORM (Normal)
--- NOTE | 2025-06-20 10:04 | NUR ---
AM NOTE: PATIENT ALERT AND ORIENTED X4. VOICE STUTTERED AND SHAKY. DIFFICULT TO UNDERSTAND AT TIMES. USING CALL LIGHT FOR NEEDS. FALL RISK. YELLOW GOWN, SOCKS AND BED ALARM IN PLACE. MOVING ALL EXTREMITIES WITH LIMITED RANGE OF MOTION AND WEAKNESS. PATIENT STIFF AND SLOW TO MOVE. UP WITH OCCUPATIONAL THERAPY THIS AM WITH THIS RN AT BEDSIDE. 2 PERSON ASSIST WITH GAIT BELT. PERRLA WITH GLASSES AT BEDSIDE. BILATERAL SCLERA RED, WORSE ON LEFT. LEFT PTOSIS. ON 2L NASAL CANNULA AT START OF SHIFT. TITRATED TO ROOM AIR AND PATIENT DESAT TO 86%. 2L REPLACED AND PATIENT SATING AT 95-96%. OCCASIONAL COUGH WITH NO SPUTUM PRODUCTION. LUNG SOUNDS CLEAR. DENIES SOB. EVEN AND UNLABORED RESPIRATIONS. TELE SHOWING SR/ST WITH HR 90-100'S. SBP 110'S. DENIES CHEST PAIN/PRESSURE/PALPIATIONS. IV FLUIDS INFUSING PER EMAR IN LEFT HAND. LEFT AC IV SALINE LOCKED. PPP. EDEMA NOTED TO RIGHT UPPER EXTREMITY, BILATERAL LOWER EXTREMITIES AND SCROTUM. BOWEL TONES PRESENT THROUGHOUT ALL FOUR QUADRANTS. TOLERATING PO DIET. DENIES ABDOMINAL PAIN/NAUSEA. UP TO BSC THIS AM WITH MODERATE BROWN LIQUID STOOL. PUREWICK IN PLACE AND VOIDED 440ML THIS AM UPON STANDING. URINE SAMPLE SENT PER ORDERS. SKIN WITH SCATTERED BRUISING/ABRASIONS/CARPET CABRAL TO HEAD, CHEST, ELBOWS, FOREARMS, HANDS, RIGHT HIP, KNEES, ANKLES AND FEET. SEE CHART PHOTOS. LEFT OPEN TO AIR AT THIS TIME. SKIN CLEANSED THIS AM WHEN UP TO COMMODE. DR. VILA TO BEDSIDE THIS AM AND THIS RN PRESENT FOR MD BENAVIDES. THIS RN DISCUSSED PLAN FOR IV FLUIDS, REPLACING POTASSIUM, URINE SAMPLE SENT, LOOSE STOOL, HOME MEDICATION RECONCILITATION COMPLETED AND ABDOMINAL US ORDERS. PLAN FOR ULTRASOUND OF RIGHT ARM WELL, DR. VILA TO PLACE ORDERS. PATIENT PLACED MULTIPLE CALLS TO CAREGIVERS, FRIENDS AND NEIGHBORS THIS AM VIA PERSONAL CELLPHONE AND DENIES THIS RN THE NEED TO UPDATE ANYONE AT THIS TIME. CALL LIGHT IN REACH. PATIENT RESTING IN BED AND WATCHING TV AT THIS TIME, DENIES NEEDS.
[2025-06-20 10:13] LABS: U Amphetamine Screen Not Detected; U Barbituate Screen DETECTED; U Benzodiazapine Screen Not Detected; U Buprenorphine Screen Not Detected; U Cannabinoids Screen Not Detected; U Cocaine Screen Not Detected; U Methadone Screen Not Detected; U Methamphetamine Screen Not Detected; U Opiates Screen Not Detected; U Oxycodone Screen Not Detected; U Phencyclidine Screen Not Detected
--- NOTE | 2025-06-20 14:21 | NUR ---
ULTRASOUND BEING DONE ON RIGHT ARM AT THIS TIME.
[2025-06-20] MEDS ORDERED: ECONAZOLE NITRA30 GM TOP (14:33)
--- NOTE | 2025-06-20 14:40 | NUR ---
JULIETA FINK AND GUILLAUME AT BEDSIDE. DR. VILA TO BEDSIDE TO UPDATE VISITORS.
--- NOTE | 2025-06-20 17:45 | NUR ---
SHIFT SUMMARY: PATIENT REMAINS ALERT AND ORIENTED. UP TO CHAIR FOR MEALS. PHYSICAL AND OCCUPATIONAL THERAPY THIS MORNING. POA TO BEDSIDE AND UPDATED ON PLAN OF CARE. IV FLUIDS INFUSING PER EMAR. ON ROOM AIR - 2L, NEEDING 2L WHEN ASLEEP. TELE SHOWING SR. SEE CHARTED VITALS. DENIES CHEST PAIN/PRESSURE. TOLERATING PO DIET. UP TO BSC WITH 2 LIQUID BROWN BOWEL MOVEMENTS. PUREWICK IN PLACE, DRAINING REMEDIOS URINE. INTERMIT LEFT KNEE PAIN. TYLENOL GIVEN WITH GOOD RELIEF. CALL LIGHT IN REACH. BED ALARM/CHAIR ALARMS IN USE THROUGHOUT SHIFT.
[2025-06-20 18:11] LABS: Alanine Aminotransfer (ALT/SGP 107.0 U/L (12-78); Albumin, Blood 2.7 g/dL (3.4-5.0); Albumin/Globulin Ratio 1.0 (0.8-1.8); Anion Gap 11.0 mmol/L (3-11); Aspartate Aminotrans (AST/SGOT 492.0 U/L (12-37); Bilirubin, Total 0.3 mg/dL (0.1-1.0); Blood Urea Nitrogen 53.0 mg/dL (8-24); CO2, Blood 21.0 mmol/L (21-32); Calcium, Blood 8.1 mg/dL (8.5-10.1); Chloride, Blood 104.0 mmol/L (98-108); Creatinine, Blood 2.24 mg/dL (0.60-1.20); Globulin, Blood 2.8 g/dL (2.2-4.0); Glucose, Blood 123.0 mg/dL (70-99); Potassium, Blood 3.6 mmol/L (3.5-5.5); Sodium, Blood 132.0 mmol/L (136-145); Total Protein, Blood 5.5 g/dL (6.4-8.2)
--- NOTE | 2025-06-20 18:38 | NUR ---
DR. VILA PLACED CALL TO THIS RN. PLAN TO CONTINUE LR AT 150ML/HR UNTIL FURTHER NOTICE. ORDER UPDATED IN EMAR. LR BAG CONTINUES TO INFUSE AT 150ML/HR FROM PRIOR ORDER.
[2025-06-21 03:18] VITALS: BP 111/57
[2025-06-21 04:36] LABS: BASOPHILS ABSOLUTE AUTO 0.01 K/mm3 (0.00-0.23); BASOPHILS PERCENT AUTO 0 % (0-2); EOSINOPHILS ABSOLUTE AUTO 0.05 K/mm3 (0.00-0.68); EOSINOPHILS PERCENT AUTO 1 % (0-6); Hematocrit 33.0 % (37.0-53.0); Hemoglobin 11.5 g/dL (13.5-17.5); IMMATURE GRAN ABSOLUTE AUTO 0.04 K/mm3 (0.00-0.10); IMMATURE GRAN PERCENT AUTO 0 % (0-1); LYMPHOCYTES ABSOLUTE AUTO 1.18 K/mm3 (0.84-5.20); LYMPHOCYTES PERCENT AUTO 11 % (21-46); MONOCYTES ABSOLUTE AUTO 1.86 K/mm3 (0.16-1.47); MONOCYTES PERCENT AUTO 17 % (4-13); Mean Corpuscular HGB Conc 34.8 g/dL (31.5-36.5); Mean Corpuscular Volume 94 fL (80-100); NEUTROPHILS ABSOLUTE AUTO 7.92 K/mm3 (1.96-9.15); NEUTROPHILS PERCENT AUTO 72 % (41-73); NRBC ABSOLUTE 0.00 K/mm3 (0.00-0.02); NRBC Auto 0.0 /100 WBC (0.0-0.2); Platelet Count 210 K/mm3 (150-400); RDW Coefficient Variation 12.9 % (11.7-14.2); RDW Standard Deviation 44.2 fL (35.1-46.3)
[2025-06-21 05:31] LABS: Alanine Aminotransfer (ALT/SGP 109.0 U/L (12-78); Albumin, Blood 2.6 g/dL (3.4-5.0); Albumin/Globulin Ratio 1.0 (0.8-1.8); Anion Gap 7.0 mmol/L (3-11); Aspartate Aminotrans (AST/SGOT 396.0 U/L (12-37); Bilirubin, Total 0.4 mg/dL (0.1-1.0); Blood Urea Nitrogen 50.0 mg/dL (8-24); CO2, Blood 25.0 mmol/L (21-32); Calcium, Blood 8.1 mg/dL (8.5-10.1); Chloride, Blood 104.0 mmol/L (98-108); Creatinine, Blood 2.14 mg/dL (0.60-1.20); Globulin, Blood 2.7 g/dL (2.2-4.0); Glucose, Blood 126.0 mg/dL (70-99); Potassium, Blood 3.3 mmol/L (3.5-5.5); Sodium, Blood 133.0 mmol/L (136-145); Total Protein, Blood 5.3 g/dL (6.4-8.2)
--- NOTE | 2025-06-21 08:13 | NUR ---
SHIFT SUMMARY: PT A&OX4 CALM AND COOPERTIVE. VERY TALKATIVE WITH SLURRED, MUMBLED SPEECH. VSS ON 2L NC WHILE SLEEPING. PT HAD LOOSE, BROWN STOOL AT START OF SHIFT. WICKING SYSTEM IN PLACE. ADEQUATE URINE OUTPUT. 2 PERSON ASSIST WITH GAIT BELT AND FWW TO [facility]. BED BATH COMPLETED. DAILY WEIGHT COMPLETED. BED IS LOW AND LOCKED. BED ALARM ON. CALL LIGHT WITHIN REACH. WILL CONTINUE PLAN OF CARE TILL REPORT GIVEN TO DAY NURSE.
[2025-06-21] MEDS ORDERED: Cholecalciferol 1000 Unit Tablet (=25MCG) PO SCH (09:00)
[2025-06-21 09:06] VITALS: BP 112/57
[2025-06-21 11:10] VITALS: BP 131/65
[2025-06-21] MEDS ORDERED: ECONAZOLE 1% TOP SCH (12:00)
--- NOTE | 2025-06-21 14:55 | NUR ---
Transfer to Medical Pt medical w/ telemetry status. A&O x4 w/ mumbled/garbled speech & tremors noted. Pt VSS. Spo2 > 92% on 2L NC. Monitor showing NSR, HR 70s-80s. Pt 1-2 person assist w/ GB & FWW. Pt requiring reminding not to lean back when standing/ambulating. Bed alarm & chair alarm used though pt not attempting to get up w/ out assistance. Report given to accepting medical floor RN assuming care of pt. Pt taken to rm [id number] in wheelchair w/ belongings.
[2025-06-21 15:17] VITALS: BP 138/68
[2025-06-21 16:36] LABS: HEPATITIS A ANTIBODY, IGM Negative (Negative); HEPATITIS C AB CIA INTERP Negative (Negative); HEPATITIS C ANTIBODY CIA INDEX 0.03 IV
[2025-06-21 17:40] LABS: Anion Gap 10.0 mmol/L (3-11); Blood Urea Nitrogen 45.0 mg/dL (8-24); CO2, Blood 24.0 mmol/L (21-32); Calcium, Blood 8.6 mg/dL (8.5-10.1); Chloride, Blood 104.0 mmol/L (98-108); Creatinine, Blood 1.97 mg/dL (0.60-1.20); Glucose, Blood 119.0 mg/dL (70-99); Potassium, Blood 4.0 mmol/L (3.5-5.5); Sodium, Blood 134.0 mmol/L (136-145)
--- NOTE | 2025-06-21 19:59 | NUR ---
SHIFT SUMMARY- PT ALERT AND ORIENTED, 2P MODERATE ASSIST WITH TRANSFERS. PT IS ON THE PUREWICK AND AT THE TIME OF BEDSIDE REPORT HE WAS ASSISTED TO THE BSC HE HAD A MED LIQUID DARK BROWN STOOL. PT VOIDED AT THAT TIME WELL. EVELYN CARE COMPLETED AND PT TRANSFERED BACK TO BED. PUREWICK CANISTER EMPTIED AT THIS TIME. PT IN BED, CALL LIGHT IN REACH, LINNEN CHANGE COMPLETED FOR WEEPING WOUNDS EVERYWHERE. NO CURRENT S&S OF DISTRESS NOTED.
[2025-06-21 20:08] VITALS: BP 147/71
[2025-06-22] VITALS (7 sets, daily range): BP systolic 107–178; BP diastolic 56–80
--- NOTE | 2025-06-22 03:37 | NUR ---
CONTROL ROOM TECHNICIAN SUMMARY TEMP ELEVATED, OTHERWISE VSS. TYLENOL ADMIN FOR ELEVATED TEMP, WILL REASSESS SOON. 1-2 PERSON ASSIST TO AND FROM BEDSIDE COMMODE, HAD BM AT SHIFT START. ALERT/ORIENTED X 2. VERBAL RESPONSE INTERMITTENT MUMBLING BUT ABLE TO MAKE NEEDS KNOWN. COOPERATIVE. IVF OF LR IN FUSING AT 150 ML/HR AND MALE PUREWICK IN USE. OUTPUT ADEQUATE. SEE DOC FLOW SHEETS FOR DETAILS. HAS BEEN RESTING QUIETLY WITH FEW INTERRUPIONS SINCE HS. CALL LIGHT IN REACH, RAILS UP X 2 AND BED IN LOW POSITION FOR SAFETY. WILL CONTINUE TO MONITOR.
[2025-06-22 06:23] LABS: Anion Gap 8.0 mmol/L (3-11); Blood Urea Nitrogen 35.0 mg/dL (8-24); CO2, Blood 26.0 mmol/L (21-32); Calcium, Blood 8.3 mg/dL (8.5-10.1); Chloride, Blood 106.0 mmol/L (98-108); Creatinine, Blood 1.58 mg/dL (0.60-1.20); Glucose, Blood 104.0 mg/dL (70-99); Potassium, Blood 3.7 mmol/L (3.5-5.5); Sodium, Blood 136.0 mmol/L (136-145)
[2025-06-22] MEDS ORDERED: Enoxaparin 40 MG/0.4 ML SYR SC SCH (09:00)
[2025-06-22] MEDS ORDERED: Ipratropium/Albuterol SulF 2.5-0.5MG/3 ML Amp INH PRN ×2 (09:20→14:20)
--- NOTE | 2025-06-22 19:10 | NUR ---
SHIFT SUMMARY PT IS A/OX3-4, VERY TALKATIVE. UP WITH 2 PERSON ASSIST WITH FWW AND GB. PT UP IN CHAIR FOR MOST OF THIS SHIFT. PURWICK IN PLACE DRAINING CLEAR, YELLOW URINE. ON 2L NC, SATS >95%. ON TELE RUNNING NORMAL SINUS RYTHYM IN THE 80-90'S. WOUNDS TO BILAT KNEES, R ELBOW, AND BILAT FEET WEEPING THIS MORNING. DISCUSSED WITH PHYSICAN. WOUNDS CLEANSED, DRY AND COVERED. SEE WOUND CARE ORDERS. PT IS PLEASANT AND COOPERATIVE WITH CARE AND CALLS APPROPRIATELY USING THE CALL LIGHT.
--- NOTE | 2025-06-23 03:32 | NUR ---
CORRECTIONAL CLASSIFICATION COUNSELOR SUMMARY BP REMAINS ELEVATED, OTHERWISE VSS. MORE ALERT THIS SHIFT THAN NOTED 24 HR AGO ON PREVIOUS SHIFT. SPEECH MORE COHERENT AND MEMORY BETTER. REMEMBERS NAMES AND EVEN JOKES WITH STAFF. UP WITH ONE ASSIST FROM THE CHAIR TO THE COMMODE USING WALKER. MALE PUREWICK REMAINS IN USE. HAS BEEN RESTING QUIETLY, ABLE TO TURN SELF IN BED WITH LITTLE OR NO ASSIST. NOTE DRESSINGS WITH SOME EXUDATE. CHANGED NEEDED. O2 PER NC. CALL LIGHT IN REACH, RAILS UP X 2 AND BED IN LOW POSITION FOR SAFETY. WILL CONT TO BONITA.
[2025-06-23 04:02] VITALS: BP 140/63
[2025-06-23 06:14] LABS: BASOPHILS ABSOLUTE AUTO 0.02 K/mm3 (0.00-0.23); BASOPHILS PERCENT AUTO 0 % (0-2); EOSINOPHILS ABSOLUTE AUTO 0.26 K/mm3 (0.00-0.68); EOSINOPHILS PERCENT AUTO 3 % (0-6); Hematocrit 33.3 % (37.0-53.0); Hemoglobin 11.3 g/dL (13.5-17.5); IMMATURE GRAN ABSOLUTE AUTO 0.03 K/mm3 (0.00-0.10); IMMATURE GRAN PERCENT AUTO 0 % (0-1); LYMPHOCYTES ABSOLUTE AUTO 0.75 K/mm3 (0.84-5.20); LYMPHOCYTES PERCENT AUTO 10 % (21-46); MONOCYTES ABSOLUTE AUTO 1.36 K/mm3 (0.16-1.47); MONOCYTES PERCENT AUTO 17 % (4-13); Mean Corpuscular HGB Conc 33.9 g/dL (31.5-36.5); Mean Corpuscular Volume 96 fL (80-100); NEUTROPHILS ABSOLUTE AUTO 5.50 K/mm3 (1.96-9.15); NEUTROPHILS PERCENT AUTO 69 % (41-73); NRBC ABSOLUTE 0.00 K/mm3 (0.00-0.02); NRBC Auto 0.0 /100 WBC (0.0-0.2); Platelet Count 208 K/mm3 (150-400); RDW Coefficient Variation 12.8 % (11.7-14.2); RDW Standard Deviation 45.1 fL (35.1-46.3)
[2025-06-23 06:41] LABS: Alanine Aminotransfer (ALT/SGP 104.0 U/L (12-78); Albumin, Blood 2.5 g/dL (3.4-5.0); Albumin/Globulin Ratio 0.9 (0.8-1.8); Anion Gap 8.0 mmol/L (3-11); Aspartate Aminotrans (AST/SGOT 228.0 U/L (12-37); Bilirubin, Total 0.6 mg/dL (0.1-1.0); Blood Urea Nitrogen 24.0 mg/dL (8-24); CO2, Blood 29.0 mmol/L (21-32); Calcium, Blood 8.6 mg/dL (8.5-10.1); Chloride, Blood 102.0 mmol/L (98-108); Creatinine, Blood 1.2 mg/dL (0.60-1.20); Globulin, Blood 2.9 g/dL (2.2-4.0); Glucose, Blood 113.0 mg/dL (70-99); Potassium, Blood 3.6 mmol/L (3.5-5.5); Sodium, Blood 135.0 mmol/L (136-145); Total Protein, Blood 5.4 g/dL (6.4-8.2)
[2025-06-23 07:54] VITALS: BP 134/73
[2025-06-23 12:03] VITALS: BP 174/77
--- NOTE | 2025-06-23 16:45 | NUR ---
SHIFT SUMMARY PT IS A/OX4. 1-2 PERSON ASSIST WITH FWW AND GB TO CHAIR/BSC. NO ACUTE CHANGES THROUGHOUT THIS SHIFT. TELE DISCONTINUED THIS AFTERNOON, PT RUNNING NORMAL SINUS RYTHYM W/BBB IN THE 80'S. ON 2L NC, SATS >95%. PURWICK IN PLACE DRAINING CLEAR, YELLOW URINE. WOUNDS TO THE BILAT KNEES, BILAT ELBOWS, BILAT FEET, AND CHEST, CLEANED AND REDRESSED PER WOUND CARE ORDERS.
[2025-06-23 19:26] VITALS: BP 138/72
[2025-06-24 05:26] VITALS: BP 144/76
[2025-06-24 06:03] LABS: Alanine Aminotransfer (ALT/SGP 90.0 U/L (12-78); Albumin, Blood 2.4 g/dL (3.4-5.0); Albumin/Globulin Ratio 0.8 (0.8-1.8); Anion Gap 7.0 mmol/L (3-11); Aspartate Aminotrans (AST/SGOT 162.0 U/L (12-37); Bilirubin, Total 0.5 mg/dL (0.1-1.0); Blood Urea Nitrogen 20.0 mg/dL (8-24); CO2, Blood 30.0 mmol/L (21-32); Calcium, Blood 8.7 mg/dL (8.5-10.1); Chloride, Blood 100.0 mmol/L (98-108); Creatinine, Blood 1.06 mg/dL (0.60-1.20); Globulin, Blood 2.9 g/dL (2.2-4.0); Glucose, Blood 107.0 mg/dL (70-99); Potassium, Blood 3.7 mmol/L (3.5-5.5); Sodium, Blood 133.0 mmol/L (136-145); Total Protein, Blood 5.3 g/dL (6.4-8.2)
--- NOTE | 2025-06-24 06:42 | NUR ---
SHIFT SUMMARY AT START OF SHIFT, PT WAS VERY WET. BEDDING AND GOWN CHANGED WELL MALE PUREWIC. PT PLEASANT AND COOPERATIVE WITH CARE. HE HAS SIGNIFICANT TREMORS IN HANDS BILATERALLY. HANDS ARE QUITE DARK PURPLE, BUT THIS IS DUE TO BRUISING AND NOT LACK OF BLOOD FLOW, PT STILL HAS RAPID CAPILLARY REPERFUSION. PT SLEPT FOR THE REST OF THE SHIFT, WAKING FOR MED PASS AND MORNING VITALS.
[2025-06-24 07:41] VITALS: BP 136/66
--- NOTE | 2025-06-24 13:16 | NUR ---
CALLED REPORT TO [facility] ANDERSON AND SPOKE WITH ABILIO.
[2025-06-24 17:37] VITALS: BP 162/75
--- NOTE | 2025-06-24 18:17 | NUR ---
PATIENT ALERT AND COOPERATIVE WITH CARES TODAY. UP TO CHAIR, DISCHARGE ORDRES PLACED AND IV REMOVED. PATIENT REPORT GIVEN TO ACCEPTING FACILITY AND ISSUES WITH TRANSPORT SO PATIENT UNABLE TO LEAVE TODAY. PATIENT UNDERSTANDS AND CHANGED BACK INTO GOWN.
[2025-06-24 19:46] VITALS: BP 167/74
[2025-06-25 02:25] VITALS: BP 135/70
--- NOTE | 2025-06-25 06:26 | NUR ---
SHIFT SUMMARY AT START OF SHIFT, PT UP IN CHAIR. PT STATED HE WAS READY TO GET INTO BED AFTER A SHORT WALK AROUND HIS ROOM. PT STILL WEAK, BUT ABLE TO AMBULATE WITH SBA. AFTER THIS RN ASSISTED HIM TO STANDING POSITION. PT INTO BED WITH WARM BLANKET. SLEEPING COMFORTABLY AT THIS TIME. PT WOKE FOR MORNING MED PASS WITHOUT INCIDENT. PUREWIC CHECKED AND PT WENT BACK TO SLEEP.
[2025-06-25 07:36] VITALS: BP 133/69
--- NOTE | 2025-06-25 13:26 | NUR ---
DC SUMMARY PT TO DC TO [facility] THIS SHIFT. TRANSPORTATION IS SET UP WITH [facility] AT 1345. PT AND PT FRIEND ALEKS HAVE BEEN NOTIFIED ABOUT THE TRANSFER. ATTEMPTED TO GIVE REPORT TO NURSE AT [facility] BUT DIDNT RECEIVE AN ANWSER SO LEFT VOICEMAIL FOR THEM TO CALL BACK AT 1325.
== END 2025-06-25 13:44 | disposition home or self-care (01) | DRG 557 ==
LOC: ER 17:22 → PCU 21:49 → MEDS 21:49 → PCU 23:54 → MEDS 06-21 15:01
PROVIDERS: Emergency Medicine; Internal Medicine; Student in an Organized Health Care Education/Training Program; ADMIT Student in an Organized Health Care Education/Training Program
DX: M62.82 Rhabdomyolysis (principal); I21.A1 Myocardial infarction type 2; N17.9 Acute kidney failure, unspecified; Z86.73 Personal history of transient ischemic attack (TIA), and cerebral infarction without residual deficits; E87.6 Hypokalemia; I10 Essential (primary) hypertension; R74.01 Elevation of levels of liver transaminase levels; R29.6 Repeated falls; E87.5 Hyperkalemia; E83.51 Hypocalcemia; M10.9 Gout, unspecified; G25.0 Essential tremor; S60.512A Abrasion of left hand, initial encounter; F17.210 Nicotine dependence, cigarettes, uncomplicated; S60.511A Abrasion of right hand, initial encounter; S80.812A Abrasion, left lower leg, initial encounter; S80.811A Abrasion, right lower leg, initial encounter; S00.81XA Abrasion of other part of head, initial encounter; W18.30XA Fall on same level, unspecified, initial encounter; D72.829 Elevated white blood cell count, unspecified; Z98.890 Other specified postprocedural states; Z88.8 Allergy status to other drugs, medicaments and biological substances; Z79.02 Long term (current) use of antithrombotics/antiplatelets; Z79.899 Other long term (current) drug therapy
CPT/HCPCS: 36415; 70450; 73560-LT; 73560-RT; 76705; 80048; 80053; 80074; 80320; 81001; 82550; 83605; 83735; 83880; 84484; 85025; 87040; 93005; 93010; 93971; 94760; 97110; 97116; 97162; 97165; 97530; 97535; 99285-25; A9270; G0480; J1650; J7030; J7120